=== PATIENT | male | born 1990 | race Asian ===

== ENCOUNTER 2017-11-16 18:04 | Emergency (ER) | payer OTHER ==
--- NOTE | 2017-11-16 18:25 | EDPHY ---
H & P Time Seen by Provider: 11/16/17 18:25 HPI/ROS: Chief complaint. Headache, nausea HPI. 27-year-old male presents emergency department with headache that awoke him from sleep 1 week ago. Was the top of his head and right side of his head and then it was gone. He had 1 more headache at night and then apparently last night again awoke him in the night. No headache now. He is not sure whether it is gradual onset her abrupt onset. He has had previous which he describes as regular headaches but this is different. Right eye seems to be watering. He has had nausea without vomiting. There has been no recent head injury. No upper respiratory symptoms and no fever. No chest discomfort or trouble breathing. No abdominal pain. ROS 10 systems were reviewed and negative with the exception of the elements mentioned in the history of present illness Past Medical/Surgical History: Healthy Social History: Single, nonsmoker, no alcohol Smoking Status: Never smoked Physical Exam: General Appearance: Alert pleasant well-developed male mild distress vital signs significant for heart rate 135 Eyes: Pupils equal and round no pallor or injection. ENT, Mouth: Mucous membranes are moist. Respiratory: There are no retractions, lungs are clear to auscultation. Cardiovascular: Regular rate and rhythm. Gastrointestinal: Abdomen is soft and nontender, no masses, bowel sounds normal. Neurological: Awake and alert, sensory and motor exams grossly normal. Speech is normal. No pronator drift. [id number] and [id number] are intact bilaterally Skin: Warm and dry, no rashes. Musculoskeletal: Neck is supple nontender. No evidence of meningismus Extremities symmetrical, full range of motion. Psychiatric: Patient is oriented X 3, there is no agitation. Constitutional: Initial Vital Signs Temperature (C) 37.3 C 11/16/17 18:10 Heart Rate 135 H 11/16/17 18:10 Respiratory Rate 18 11/16/17 18:10 Blood Pressure 136/98 H 11/16/17 18:10 O2 Sat (%) 94 11/16/17 18:10 O2 Delivery Mode Room Air Allergies/Adverse Reactions: No Known Allergies Allergy (Unverified 11/16/17 18:08) Home Medications: Medication Instructions Recorded NK [No Known Home Meds] 11/16/17 Medical Decision Making - Diagnostics Imaging Results: Imaging Impressions Head CT 11/16/17 18:36 Impression: No acute intracranial findings. If symptoms persist and clinical suspicion warrants, consider MRI. Findings discussed with WILLIAM Maxwell YUDITH 11/16/2017 at 19:16. Noncontrast head CT reviewed by me and discussed with Dr. Mc is normal Procedures: IV normal saline with 1 L given Patient and I discussed lab and imaging results. We discussed recommendation for lumbar puncture including risks and benefits. He expresses understanding and agreement Procedure: Lumbar puncture. Indication: Headache After verbal informed consent from patient explaining the risks including infection, bleeding, and neurologic damage, a lumbar puncture was performed after the patient was prepped and draped in the usual fashion. The back was anesthetized with 1% lidocaine. Approximately 4 cc of clear fluid was obtained. Opening pressure was not obtained. There were no complications. The procedure was performed by myself. ED Course/Re-evaluation: Re-evaluation again at 9:15 p.m.. Patient and I discussed CSF which showed 2 white blood cells and 0 red cells. Color was colorless. No evidence for xanthochromia. We will give the patient another L of saline and recheck CB C. Patient is amenable to this plan Re-evaluation again at 10:15 p.m.. Patient looks well he stable. The patient and I discussed laboratory evaluation, treatment plan including criteria for return importance of follow-up further evaluation. He expresses understanding and agreement Patient looks well. He feels comfortable going home Differential Diagnosis: I considered intracranial hemorrhage, subarachnoid hemorrhage, meningitis, viral syndrome - Data Points Laboratory Results: Laboratory Results 11/16/17 22:03 11/16/17 18:40 11/16/17 11/16/17 11/16/17 22:03 19:55 19:55 WBC 23.28 10^3/uL H 10^3/uL (3.80-9.50) RBC 4.59 10^6/uL 10^6/uL (4.40-6.38) Hgb 13.8 g/dL g/dL (13.7-17.5) Hct 40.7 % % (40.0-51.0) MCV 88.7 fL fL (81.5-99.8) MCH 30.1 pg pg (27.9-34.1) MCHC 33.9 g/dL g/dL (32.4-36.7) RDW 12.5 % % (11.5-15.2) Plt Count 218 10^3/uL 10^3/uL (150-400) MPV 9.6 fL fL (8.7-11.7) Neut % (Auto) Pending Lymph % (Auto) Pending [place] % (Auto) Pending Eos % (Auto) Pending Baso % (Auto) Pending Nucleat RBC Rel Count Pending Absolute Neuts (auto) Pending Absolute Lymphs (auto) Pending Absolute Monos (auto) Pending Absolute Eos (auto) Pending Absolute Basos (auto) Pending Absolute Nucleated RBC Pending Immature Gran % Pending Immature Gran # Pending Platelet Estimate Pending Sodium Potassium Chloride Carbon Dioxide Anion Gap BUN Creatinine Estimated GFR Glucose Calcium CSF Tube Number 4 1 CSF Appearance CLEAR CLEAR (CLEAR) (CLEAR) CSF Color COLORLESS COLORLESS (COLORLESS) (COLORLESS) CSF Supernatant Not Reported Not Reported CSF WBC 2 /mm3 /mm3 2 /mm3 /mm3 (0-5) (0-5) CSF RBC 0 /mm3 /mm3 0 /mm3 /mm3 (0-0) (0-0) CSF Glucose 69 mg/dL mg/dL (50-75) CSF Total Protein 51 mg/dL mg/dL (12-60) 11/16/17 11/16/17 18:40 18:40 WBC 28.82 10^3/uL H 10^3/uL (3.80-9.50) RBC 5.31 10^6/uL 10^6/uL (4.40-6.38) Hgb 16.0 g/dL g/dL (13.7-17.5) Hct 46.9 % % (40.0-51.0) MCV 88.3 fL fL (81.5-99.8) MCH 30.1 pg pg (27.9-34.1) MCHC 34.1 g/dL g/dL (32.4-36.7) RDW 12.3 % % (11.5-15.2) Plt Count 256 10^3/uL 10^3/uL (150-400) MPV 9.6 fL fL (8.7-11.7) Neut % (Auto) 87.4 % H % (39.3-74.2) Lymph % (Auto) 5.9 % L % (15.0-45.0) [place] % (Auto) 6.0 % % (4.5-13.0) Eos % (Auto) 0.1 % L % (0.6-7.6) Baso % (Auto) 0.2 % L % (0.3-1.7) Nucleat RBC Rel Count 0.0 % % (0.0-0.2) Absolute Neuts (auto) 25.16 10^3/uL H 10^3/uL (1.70-6.50) Absolute Lymphs (auto) 1.71 10^3/uL 10^3/uL (1.00-3.00) Absolute Monos (auto) 1.73 10^3/uL H 10^3/uL (0.30-0.80) Absolute Eos (auto) 0.03 10^3/uL 10^3/uL (0.03-0.40) Absolute Basos (auto) 0.07 10^3/uL 10^3/uL (0.02-0.10) Absolute Nucleated RBC 0.00 10^3/uL 10^3/uL (0-0.01) Immature Gran % 0.4 % % (0.0-1.1) Immature Gran # 0.12 10^3/uL H 10^3/uL (0.00-0.10) Platelet Estimate Not Reported Sodium 137 mEq/L mEq/L (135-145) Potassium 4.2 mEq/L mEq/L (3.3-5.0) Chloride 98 mEq/L mEq/L (97-110) Carbon Dioxide 24 mEq/l mEq/l (22-31) Anion Gap 15 mEq/L H mEq/L (6-14) BUN 12 mg/dL mg/dL (7-23) Creatinine 0.7 mg/dL mg/dL (0.7-1.3) Estimated GFR > 60 Glucose 100 mg/dL mg/dL (70-100) Calcium 10.1 mg/dL mg/dL (8.5-10.4) CSF Tube Number CSF Appearance CSF Color CSF Supernatant CSF WBC CSF RBC CSF Glucose CSF Total Protein Microbiology Results: MICROBIOLOGY 11/16/17 19:55 Cerebral Spinal Fluid Gram Stain - Final Medications Given: Discontinued Medications Sodium Chloride (Ns) 1,000 mls @ 0 mls/hr IV EDNOW ONE; Wide Open PRN Reason: Protocol Stop: 11/16/17 18:36 Last Admin: 11/16/17 18:45 Dose: 1,000 mls Sodium Chloride (Ns) 1,000 mls @ 0 mls/hr IV ONCE ONE; Wide Open PRN Reason: Protocol Stop: 11/16/17 21:14 Last Admin: 11/16/17 21:17 Dose: 1,000 mls Departure - Departure Disposition: Home, Routine, Self-Care Clinical Impression: Viral syndrome Condition: Fair Instructions: Viral Syndrome (ED) Additional Instructions: Drink plenty of fluids and stay hydrated. Regular meals. Regular sleep. Activity as tolerated For return of headache ibuprofen 600 mg every 6 hr, Tylenol 650 mg every 4-6 hours Return for worsening headache, fever. Recheck in 2 days if not improving Call neurologist tomorrow to arrange follow-up appointment for your headaches Referrals: NONE *PRIMARY CARE P,. [Primary Care Provider] - As per Instructions [facility] [Outside] - 2-3 days, if not improved Don Hurst MD [Medical Doctor] - 5-7 days, call for appt.
[2017-11-16] MEDS ORDERED: NS 1,000 ML IV ONE ×2 (18:35→21:13)
[2017-11-16 18:59] LABS: PLATELET COUNT 256 10^3/uL (150-400)
[2017-11-16 22:08] LABS: PLATELET COUNT 218 10^3/uL (150-400)
[2017-11-16 22:37] VITALS: BP 134/95
== END 2017-11-16 22:36 | disposition home or self-care (01) ==
PROC: 009U3ZX Drainage of Spinal Canal, Percutaneous Approach, Diagnostic (ICD-10-PCS; principal; 2017-11-16)
DX: R51 Headache (principal); R11.0 Nausea; E86.9 Volume depletion, unspecified